=== PATIENT | male | born 1980 | race Caucasian/White ===

== ENCOUNTER 2020-05-22 07:27 | Emergency (ER) | payer OTHER, BC, SELFPAY ==
[2020-05-22 07:29] VITALS: BP 163/130; PULSE 94; RESP 16; TEMP 36.4; O2SAT 96; BMI 40.0
--- NOTE | 2020-05-22 07:40 | ED_ITS ---
HPI - General Adult General: Chief complaint: Upper Respiratory Infection Stated complaint: Sore Throat/Left Ear Pain Time Seen by Provider: 05/22/20 07:31 History of Present Illness: HPI narrative: Patient is a 39-year-old male who comes to the ED with a sore throat and left ear pain. Symptoms started approximately 1 week ago. Patient says a week ago he did have to help with mother move some things in her house and he complained that the house was very v eric frances and dirty. He also is complaining of having some nasal congestion with thick green phlegm. He is recently seen at [facility] to address this problem and they sent him with a prescription for prednisone and Sudafed. He reports having no relief. Patient says he takes lisinopril for his blood pressure but has not been taking it for about a week now, since the start of him feeling sick. He has had 1 day of a mild fever but that has since resolved. Denies any chest pain, cough, shortness of breath, abdominal pain, nausea/vomiting, bladder or bowel symptoms. Associated symptoms: Deny chest pain, dyspnea, headache(s), nausea, rash, palpitations or vomiting Review of Systems 2 Const: Denies: fever(s), chills or fatigue Eyes: Denies: change in vision or eye discomfort ENMT: Reports: throat pain, ear or mastoid pain (left), nasal discharge and nasal congestion; Denies: odynophagia Card: Denies: chest pain, palpitations, edema, swelling of feet/ankles, dyspnea on exertion or orthopnea Resp: Denies: dyspnea, productive cough or non-productive cough GI: Denies: abdominal pain, nausea, vomiting, diarrhea, constipation or hematochezia : Denies: flank pain, difficulty urinating, dysuria or hematuria Musc: Denies: neck pain, back pain or extremity swelling Skin/Breast: Denies: rash or new lesions Neuro: Denies: headache(s), numbness in extremities or weakness in extremities Physical Exam Const: COMMON NORMALS: no acute distress, patient oriented x3 and alert GENERAL APPEARANCE: cooperative and comfortable HENMT: COMMON NORMALS: normocephalic, EAC's normal and TM's normal bilaterally HEAD & SCALP: normocephalic FACE & SINUS: no sinus tenderness NOSE: Nasal discharge present clear Clear nasal discharge laterality: bilateral EXTERNAL AUDITORY CANAL: EAC's normal TYMPANIC MEMBRANE: TM's normal bilaterally MOUTH: Normal oral and palatal mucosa present THROAT: uvula midline and posterior oropharynx abnormal cobblestoning and erythema; no exudates Eye: COMMON NORMALS: conjunctivae normal CONJUNCTIVA: Yes conjunctivae normal Neck/C-Spine: COMMON NORMALS: supple GENERAL: Yes normal visual inspection Lymph: LYMPHATIC: lymphadenopathy left anterior cervical single and tender 0.5 cm Resp: COMMON NORMALS: normal respiratory effort, No retractions, No use of accessory muscles and clear to auscultation bilaterally AUSCULTATION: clear to auscultation bilaterally Cardio: COMMON NORMALS: regular rate, regular rhythm, S1 normal heart sound present, S2 normal heart sound present, No gallops present (Cardio), No clicks present (Cardio), No murmurs present (Cardio) and Peripheral pulses 2+ throughout RATE: regular rate RHYTHM: regular rhythm HEART SOUNDS: S1 normal heart sound present and S2 normal heart sound present PERIPHERAL PULSES: Peripheral pulses 2+ throughout GI: COMMON NORMALS: Normal to inspection, nondistended, normoactive bowel sounds present, Soft to palpation, non-tender and no masses PALPATION: Yes Soft to palpation : COMMON NORMALS: Yes no CVA tenderness BLADDER/KIDNEY EXAM: Yes no CVA tenderness Back/Pelvis: COMMON NORMALS: no CVA tenderness Extremity: COMMON NORMALS: normal to inspection Neuro: COMMON NORMALS: patient oriented x3 and moves all extremities SENSORIUM/ORIENTATION: Yes alert Skin: GENERAL SKIN EXAM: dry skin Course Vital Signs: Vital signs: Vital Signs Temperature 97.6 F 05/22/20 07:29 Pulse Rate 90 05/22/20 08:56 Respiratory Rate 18 05/22/20 08:56 Blood Pressure 184/120 05/22/20 08:56 Pulse Oximetry 98 05/22/20 08:56 MDM - General Adult MDM Narrative: Medical decision making narrative: Patient is a 39-year-old male comes to the ED with sore throat. Rapid strep test positive. Patient was given Bicillin IM injection to treat strep while here in the ED. He was discharged and told to follow-up with his PCP in 7 to 10 days. Return to ED precautions given. Patient understood and agreed with plan. Lab Data: Attestation: I reviewed the patient's lab results. Labs: Lab Results 05/22/20 Range/Units 07:50 Group A Strep Rapi d Positive H (Negative) Discharge Plan Discharge Patient Disposition: Home Clinical Impression: Strep throat Allergic rhinitis Qualifiers: Allergic rhinitis trigger: unspecified Allergic rhinitis seasonality: non- seasonal Qualified Code(s): J30.89 - Other allergic rhinitis Condition: Stable Discharge Orders: Discharge ED (Routine); Ordered 05/22/20 Ordered By: Keon Arias Discharge Diet: Regular Discharge Activity: Resume usual activity Patient Instructions: Lymphadenitis Activity Restrictions/Additional Instructions: Follow-up with medical provider as directed in 7 to 10 days for reevaluation. Continue taking your lisinopril to treat your blood pressure. Take medications as prescribed. Buy [id number] Flonase and use per bottle instructions to help with nasal congestion and drainage. Take [id number] ibuprofen or Tylenol for fever or pain. Return to the ER or your medical provider if condition worsens. Please read and understand discharge instructions. If any questions, please ask. Coding Level of Care Code ED Marketing Programs Manager for Yvonne Fwitalia Exam Comprehensive
[2020-05-22] MEDS: acetaminophen 500 mg Tablet 1000 MG PO (08:38)
[2020-05-22 08:56] VITALS: BP 184/120; PULSE 90; RESP 18; O2SAT 98
[2020-05-22 09:08] LABS: Rapid Strep A Test Positive (Negative)
[2020-05-22 09:30] VITALS: BP 177/125; PULSE 86; O2SAT 98
[2020-05-22] MEDS: penicillin g (L-A) 1,200,000 unit/2 mL Syr 1200000 UNIT IM (09:41)
== END 2020-05-22 09:30 | disposition home or self-care (01) ==
PROVIDERS: Emergency Provider Physician Assistant
DX: J02.0 Streptococcal pharyngitis (principal); J30.89 Other allergic rhinitis
CPT/HCPCS: 12345; 87880; 96372; 99281; 99283; J0561

== ENCOUNTER → 2024-07-22 10:09 | Outpatient (BNVA) | payer OTHER, SELFPAY | PROVIDERS: PCP Family Medicine; Visit Provider Family Medicine | DX: Z02.1 Encounter for pre-employment examination (principal) | CPT/HCPCS: 80307 ==

== ENCOUNTER 2024-09-24 07:44 | Emergency (ER) | payer OTHER, SELFPAY ==
[2024-09-24 08:01] VITALS: BP 196/130; PULSE 102; RESP 17; TEMP 36.5; O2SAT 94; BMI 44.6
--- NOTE | 2024-09-24 08:08 | ECG_ITS ---
[facility] Date: 2024-09-24 Pat Name: Conrad Roldan Department: Room: Gender: Male Human Resources Mgr: : 1980 Requested By: Camacho Raphael Order Number: [id number] Reading MD: RENEA KEENAN Measurements Intervals [place] Rate: 85 P: 9 NV: 144 QRS: 27 QRSD: 89 T: 192 QT: 373 QTc: 445 Interpretive Statements SINUS RHYTHM NONSPECIFIC T-WAVE ABNORMALITY Compared to ECG 07/01/2016 03:05:18 T-wave abnormality now present Electronically Signed On 09-26-2024 23:52:16 CDT by RENEA KEENAN [email or web address]
--- NOTE | 2024-09-24 08:08 | XR_ITS ---
WS: [id number] XR chest 1V portable [id number] REASON FOR EXAM: dyspnea/cough FINDINGS: The chest is relatively unchanged compared to 05/22/2018. Mild tortuosity the thoracic aorta. The heart size is at the upper limits of normal. Calcified granulomatous disease bilaterally. No acute pulmonary parenchymal or pleural abnormality. Moderate degenerative spondylosis in the mid and lower thoracic spine. XR/XR chest 1V portable [id number] IMPRESSION: No acute chest abnormality.
[2024-09-24 08:23] LABS: Basophils # 0.1 10^3/uL (0.0-0.1); Basophils % 0.9 %; Eosinophils # 0.3 10^3/uL (0.0-0.8); Eosinophils % 4.5 %; Hematocrit 45.7 % (37-53); Lymphocytes # 1.6 10^3/uL (0.8-4.8); Lymphocytes % 27.4 %; Mean Corpuscular HGB Conc 33.3 g/dL (30-55); Mean Corpuscular Hemoglobin 27.9 pg (27-33); Mean Platelet Volume 10.3 fL (7.4-10.4); Monocytes # 0.5 10^3/uL (0.2-0.9); Monocytes % 8.6 %; Neutrophils % 58.4 %; Nucleated Red Blood Cells % 0 %; Platelet Count 218 10^3/cmm (157-399); Red Blood Count 5.44 10^6/uL (3.85-5.65); Red Cell Distribution Width 12.4 % (12.1-15.1); White Blood Count 5.81 10^3/uL (3.29-11.43)
[2024-09-24 08:42] LABS: Alanine Aminotransferase 109 U/L (0-41); Albumin Level 4.1 g/dL (3.5-5.2); Alkaline Phosphatase 92 U/L (40-130); Anion Gap 10.8 (5-19); Aspartate Amino Transferase 49 U/L (0-40); Blood Urea Nitrogen 12 mg/dL (6-20); Calcium 8.8 mg/dL (8.5-10.5); Carbon Dioxide 29 mmol/L (22-29); Chloride 100 mmol/L (98-107); Creatinine Clr Calc Pharmacy 152.9481; Globulin 3.9 g/dL (1.3-4.6); Glomerular Filtration Rate 91.7 mL/min (90-130); Glucose 155 mg/dL (65-115); Osmolality Calculated 285 mOsm/kg (285-295); Potassium 3.8 mmol/L (3.5-5.1); Sodium 136 mmol/L (136-145); Total Bilirubin 0.6 mg/dL (0.15-1.2)
--- NOTE | 2024-09-24 08:43 | ED_ITS ---
HPI - Weakness 2 General: Chief complaint: Weakness Stated complaint: high bp Time Seen by Provider: 09/24/24 08:06 History of Present Illness: 44-year-old male [facility] complaining of [facility]iness. He said he got a little overheated working outside 2 days ago he never passed out or had any chest pain or shortness of breath. 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 He is currently on lisinopril 20 mg daily as well as takes naproxen as needed no chest pain or shortness of breath at this time. He has been taking all his medications regularly. Associated symptoms: Denies chest pain, chills, dysuria or fever(s) Review of Systems 2 Const: Denies: fever(s) or chills Card: Denies: chest pain Resp: Denies: dyspnea GI: Denies: abdominal pain : Denies: dysuria, urinary frequency or urinary urgency Musc: Denies: neck pain or back pain Skin/Breast: Denies: rash Physical Exam 2 Const: COMMON NORMALS: no acute distress GENERAL APPEARANCE: cooperative and comfortable ORIENTATION/CONSCIOUSNESS: Yes awake, Yes oriented to person, Yes oriented to place and Yes oriented to time HENMT: COMMON NORMALS: normocephalic, atraumatic and hearing grossly normal bilaterally HEAD & SCALP: normocephalic and atraumatic Resp: COMMON NORMALS: normal respiratory effort, No retractions, No use of accessory muscles and clear to auscultation bilaterally AUSCULTATION: clear to auscultation bilaterally Cardio: COMMON NORMALS: regular rate, regular rhythm and No murmurs present (Cardio) RATE: regular rate RHYTHM: regular rhythm GI: COMMON NORMALS: Soft to palpation and No hepatosplenomegaly present A USCULTATION: Yes normoactive bowel sounds PALPATION: Yes Soft to palpation, No Tenderness to palpation present (GI), No Guarding due to palpation present (GI) and Yes No hepatosplenomegaly present Extremity: COMMON NORMALS: normal to inspection, capillary refill normal, no clubbing, cyanosis or edema, no calf tenderness and no pedal edema Neuro: SENSORIUM/ORIENTATION: Yes oriented to person, Yes oriented to place and Yes oriented to time Skin: COMMON NORMALS: no rashes or lesions noted GENERAL SKIN EXAM: no rashes or lesions noted Course 2 Vital Signs: Vital signs: Vital Signs Temperature 97.7 F 09/24/24 08:01 Pulse Rate 81 09/24/24 09:52 Respiratory Rate 15 09/24/24 09:30 Blood Pressure 173/105 09/24/24 09:52 Pulse Oximetry 98 09/24/24 09:52 Oxygen Delivery Me thod Room Air 09/24/24 08:46 MDM - Weakness Medical Decision Making Lab test unremarkable other than he does have some elevated liver enzymes that should be followed up as an outpatient with his primary care doctor within the next month. Blood pressure was elevated improved with medications given will discharge home continue his lisinopril add amlodipine 5 mg daily and follow-up with his primary care doctor within the next week. Medical Records I reviewed the patient's medical records. Lab Data I reviewed the patient's lab results. 09/24/24 08:14 09/24/24 08:14 Radiology Impressions Chest X-Ray 09/24/24 08:08 IMPRESSION: No acute chest abnormality. Laboratory Results WBC 5.81 10^3/uL (3.29-11.43) 09/24/24 08:14 RBC 5.44 10^6/uL (3.85-5.65) 09/24/24 08:14 Hgb 15.20 g/dL (11.27-16.99) 09/24/24 08:14 Hct 45.7 % (37-53) 09/24/24 08:14 MCV 84.0 fl (82-101) 09/24/24 08:14 MCH 27.9 pg (27-33) 09/24/24 08:14 MCHC 33.3 g/dL (30-55) 09/24/24 08:14 RDW 12.4 % (12.1-15.1) 09/24/24 08:14 Plt Count 218 10^3/cmm (157-399) 09/24/24 08:14 MPV 10.3 fL (7.4-10.4) 09/24/24 08:14 Neut % (Auto) 58.4 % 09/24/24 08:14 Lymph % (Auto) 27.4 % 09/24/24 08:14 [place] % (Auto) 8.6 % 09/24/24 08:14 Eos % (Auto) 4.5 % 09/24/24 08:14 Baso % (Auto) 0.9 % 09/24/24 08:14 Neut # (Auto) 3.40 10^3/uL (1.8-7.7) 09/24/24 08:14 Lymph # (Auto) 1.6 10^3/uL (0.8-4.8) 09/24/24 08:14 [place] # (Auto) 0.5 10^3/uL (0.2-0.9) 09/24/24 08:14 Eos # (Auto) 0.3 10^3/uL (0.0-0.8) 09/24/24 08:14 Baso # (Auto) 0.1 10^3/uL (0.0-0.1) 09/24/24 08:14 Nucleated RBC % (auto) 0 % 09/24/24 08:14 Nucleated RBCs # 0.0 /100WBC 09/24/24 08:14 Sodium 136 mmol/L (136-145) 09/24/24 08:14 Potassium 3.8 mmol/L (3.5-5.1) 09/24/24 08:14 Chloride 100 mmol/L (98-107) 09/24/24 08:14 Carbon Dioxide 29 mmol/L (22-29) 09/24/24 08:14 Anion Gap 10.8 (5-19) 09/24/24 08:14 BUN 12 mg/dL (6-20) 09/24/24 08:14 Creatinine 0.9 mg/dL (0.7-1.2) 09/24/24 08:14 GFR Calculation 91.7 mL/min (90-130) 09/24/24 08:14 Glucose 155 mg/dL (65-115) H 09/24/24 08:14 Calculated Osmolality 285 mOsm/kg (285-295) 09/24/24 08:14 Calcium 8.8 mg/dL (8.5-10.5) 09/24/24 08:14 Total Bilirubin 0.6 mg/dL (0.15-1.2) 09/24/24 08:14 AST 49 U/L (0-40) H 09/24/24 08:14 ALT 109 U/L (0-41) H 09/24/24 08:14 Alkaline Phosphatase 92 U/L (40-130) 09/24/24 08:14 Total Protein 8.0 g/dL (6.6-8.7) 09/24/24 08:14 Albumin 4.1 g/dL (3.5-5.2) 09/24/24 08:14 Globulin 3.9 g/dL (1.3-4.6) 09/24/24 08:14 All radiology interpretation(s) finalized by discharge EKG Data EKG 1: Interpretation: EKG September 24, 2024 830 sinus rhythm with a rate of 85 OR interval 144 QT 373 T wave inversion in V6 but otherwise no significant abnormality noted. No ST elevation. No previous EKG available for comparison. Discharge Plan Discharge Patient Disposition: Home Clinical Impression: HTN (hypertension), benign Condition: Stable Prescriptions: New amlodipine 5 mg tablet 5 mg PO DAILY Qty: 30 0RF Continued lisinopril 20 mg tablet 20 mg PO DAILY Qty: 30 0RF No Action naproxen [Naprosyn] 500 mg tablet 500 mg PO BID Qty: 60 0RF montelukast 10 mg tablet 10 mg PO DAILY Discharge Orders: Discharge ED (Routine); Ordered 09/24/24 Ordered By: Camacho Méndez Referrals: Seferino Esparza MD [Primary Care Provider, Family Practice] Discharge Diet: Usual diet Discharge Activity: Resume usual activity Patient Instructions: Opioid Safety, Pain Management Activity Restrictions/Additional Instructions: Thank you for choosing [facility] for your healthcare needs today. It is very important that you follow up as instructed or that you return to the Emergency Department should you have concerns or if your condition changes or worsens in any way. You are seen in the emergency room with concerns of your blood pressure. Your laboratory tests showed some mild elevation in your liver functions but the remainder of your tests including electrolytes kidney function blood counts were normal. You should follow-up with your primary care doctor regarding the liver function elevation that was slight and just needs repeating in a few weeks. Will have you add amlodipine 5 mg a day for your blood pressure follow-up with your doctor within the next 7 to 10 days to reevaluate blood pressure control. You may need further adjustments of medications to achieve optimal blood pressure. Stand Alone Forms: Work/School Release Print Language: [place] Coding Level of Care Code ED Crystal Finisher for Chg Fwd Related Data Home Medications ?Medication ?Instructions ?Recorded ?Confirmed montelukast 10 mg tablet 10 mg PO DAILY 01/02/2106/21 Previous Rx's ?Medication ?Instructions ?Recorded naproxen 500 mg tablet (Naprosyn) 500 mg PO BID #60 ta bs 01/25/21 amlodipine 5 mg tablet 5 mg PO DAILY #30 tabs 09/24 lisinopril 20 mg tablet 20 mg PO DAILY #30 tabs 09/13 Allergies Allergy/AdvReac Type Severity Reaction Status Date / Time No Known Allergies Allergy Verified 07/12/21 08:51
[2024-09-24 08:46] VITALS: BP 194/115; PULSE 89; O2SAT 93
[2024-09-24] MEDS: amlodipine 5 mg Tablet PO (09:01)
[2024-09-24] MEDS: labetalol 5 mg/mL SDV 20mL 10 MG IVP (09:01)
[2024-09-24] MEDS: hyDRALAzine 20 mg/mL INJ 1 mL 10 MG IVP (09:02)
[2024-09-24 09:04] VITALS: BP 196/122; PULSE 86; RESP 16; O2SAT 94
[2024-09-24 09:30] VITALS: BP 153/104; PULSE 79; RESP 15; O2SAT 96
[2024-09-24 09:52] VITALS: BP 173/105; PULSE 81; O2SAT 98
== END 2024-09-24 09:53 | disposition home or self-care (01) ==
PROVIDERS: Emergency Provider Family Medicine; PCP Family Medicine
DX: I10 Essential (primary) hypertension (principal)
CPT/HCPCS: 36415; 71045; 80053; 85025; 93005; 96374; 96375; 99285; J0360; J3490; J9999

== ENCOUNTER → 2025-01-14 13:36 | Outpatient (BNVA) | payer SELFPAY | PROVIDERS: PCP Family Medicine; Visit Provider Family Medicine | DX: E11.9 Type 2 diabetes mellitus without complications (principal) | CPT/HCPCS: 83036 ==

== ENCOUNTER → 2025-02-17 09:44 | Outpatient (BNVA) | payer OTHER, SELFPAY | PROVIDERS: PCP Family Medicine; Visit Provider Podiatrist Foot & Ankle Surgery | DX: M72.2 Plantar fascial fibromatosis (principal); M79.671 Pain in right foot; M79.672 Pain in left foot | CPT/HCPCS: 73630 ==